=== PATIENT | male | born 1980 | race Hispanic/Latino ===

== ENCOUNTER 2018-02-15 19:07 | Emergency (ER) | payer BC, OTHER ==
[2018-02-15] MEDS ORDERED: CLINDAMYCIN HCL 150 MG CAP ONE (19:24)
== END 2018-02-15 19:44 | disposition home or self-care (01) ==
LOC: EDH 19:07
DX: L03.115 Cellulitis of right lower limb (principal); Z72.0 Tobacco use

== ENCOUNTER 2019-07-08 07:27 | Emergency (ER) | payer BC ==
[2019-07-08] MEDS ORDERED: LIDOCAINE HCL 2% VISCOUS 15 ML UDCUP ONE (08:10)
[2019-07-08] MEDS ORDERED: MAG HYDROX/AL HYDROX/SIMETH ES 30 ML SUSP UDCUP ONE (08:10)
[2019-07-08] MEDS ORDERED: PANTOPRAZOLE 40 MG/VIAL IVP ONE (08:26)
[2019-07-08 08:31] LABS: BASOPHILS % (AUTO) 0.7 % (0.0-5.0); EOSINOPHILS % (AUTO) 1.7 % (0.0-8.0); HEMATOCRIT 38.5 % (42-54); LYMPHOCYTES % (AUTO) 27.7 % (21.0-51.0); MEAN CORPUSCULAR HGB CONC 34.5 g/dL (32.0-36.0); MEAN CORPUSCULAR VOLUME 86.8 fL (79-99); MONOCYTES % (AUTO) 7.9 % (3.0-13.0); PLATELET COUNT (AUTO) 279 K/uL (130-400); RED BLOOD CELL COUNT(AUTO) 4.44 MIL/uL (4.50-6.20); RED CELL DISTRIBUTION WIDTH 13.1 % (11.0-15.5); WHITE BLOOD COUNT (AUTO) 5.3 K/uL (4.8-10.8)
[2019-07-08 08:54] LABS: CREATININE 1.1 mg/dL (0.5-1.5); POTASSIUM 4.1 mmol/L (3.5-5.1)
[2019-07-08 09:01] LABS: ALBUMIN 3.8 g/dL (3.5-5.0); BILIRUBIN,TOTAL 0.2 mg/dL (0.2-1.0); TOTAL PROTEIN, SERUM 6.9 g/dL (6.0-8.3)
== END 2019-07-08 10:28 | disposition home or self-care (01) ==
LOC: EDH 07:27
DX: K29.00 Acute gastritis without bleeding (principal); K21.9 Gastro-esophageal reflux disease without esophagitis; Z98.890 Other specified postprocedural states
CPT/HCPCS: 36415; 80053; 83690; 85025; 86677; 96374; 99285; C9113

== ENCOUNTER 2025-04-15 17:45 | Emergency (ER) | payer BC ==
[~2025-04-15] VITALS: Ht 175.3 cm; Wt 88.5 kg
--- NOTE | 2025-04-15 18:00 | ERN ---
ED Note History of Present Illness Stated Complaint: ABNORMAL LABS Time Seen by MD: 17:55 Time Seen by Midlevel: 17:55 Dictation: Mr. Mayer is a 44 year old male with history of low testosterone levels who presented to the emergency department this evening for evaluation of abnormal lab findings. He states that a few days ago is experiencing some chest tightness and left arm cramping. He states that Tuesday he was moving some heavy objects. He had routine labs drawn on Tuesday by his testosterone replacem ent therapy Dr. and they called him today to tell him that his potassium was 7.2. He denies having any further chest pain/tightness or arm cramping. He denies fever, chills, shortness of breath, cough, chest pain, palpitations, edema, abdominal pain, nausea, vomiting, hematemesis, constipation, diarrhea, melena, hematochezia, dysuria, headache, dizziness, or focal weakness/parest hesia. He denies use of alcohol or recreational drugs. Patient is former smoker. Allergies: Coded Allergies: No Known Allergies (Unverified Allergy, Unknown, 07/08/19) Emergency Care TROUBLE TRACER: None Past Medical History Past Medical History: Other (low testosterone) Surgical History: Other (elbow) PSYCH History: no pertinent psych hx Social History: Smokers (former) RN Note Reviewed/Agreed w/PFSH: Yes Review of System Dictation REVIEW OF SYSTEMS: CONSTITUTIONAL: Patient denies fevers, chills, sweats and weight changes. EYES: Patient denies any visual symptoms. EARS, NOSE, AND THROAT: No difficulties with hearing. No symptoms of rhinitis or sore throat. CARDIOVASCULAR: Patient denies palpitations, orthopnea and paroxysmal nocturnal dyspnea. He states that a few days ago he had some chest course tightness and cramping of his left arm. RESPIRATORY: No dyspnea on exertion, no wheezing or cough. GI: No nausea, vomiting, diarrhea, constipation, abdominal pain, hematochezia or melena. : No urinary hesitancy or dribbling. No nocturia or urinary frequency. No abnormal urethral discharge. MUSCULOSKELETAL: No myalgias or arthralgias. NEUROLOGIC: No chronic headaches, no seizures. Patient denies numbness, tingling or weakness. PSYCHIATRIC: Patient denies problems with mood disturbance. States he has anxiety secondary to abnormal lab values ENDOCRINE: No excessive urination or excessive thirst. DERMATOLOGIC: Patient denies any rashes or skin changes. Initial Vital Sign VS Vital Signs Date Time Temp Pulse Resp B/P (MAP) Pulse Ox O2 Delivery O2 Flow Rate FiO2 04/15/25 17:58 98.1 72 16 152/92 98 Room Air 0 04/15/25 18:06 21 Physical Exam Dictation Vital signs: Reviewed. Afebrile Constitutional: No acute distress. Head/Face: Normocephalic, atraumatic. Eyes: Periorbital areas with no swelling, redness, or edema. Lids and lashes are normal. Conjunctival injection is absent. Sclera anicteric. Pupils equal, round, reactive to light. ENT: Pinnas intact and no signs of trauma or erythema. Ear canals clear and no discharge. TMs no erythema. No nasal discharge or bleeding noted. Oropharynx with no exudate, redness, swelling, masses, exudates, or evidence of obstruction. Uvula midline. Mucous membranes slightly dry Neck: Trachea midline, no masses palpated, and no cervical lymphadenopathy. No swelling. Supple, full range of motion. Chest/Axilla: No tenderness, no crepitus, no paradoxical movement, no retractions. Cardiovascular: Regular rate, regular rhythm, no murmur, no gallops. Symmetric pulses. No peripheral edema. CP 0/10. Twelve lead EKG reflects a sinus rhythm without ST elevation or depression. Respiratory: Respirations even and unlabored. Lung sounds clear; no wheezes, rales or rhonchi. Room air SpO2 99% Gastrointestinal: Inspection is normal. No distention is appreciated. Bowel sounds are normal. No mass or organomegaly . There is no tenderness. No rebound. No rigidity. No voluntary or involuntary guarding. No Chester's sign. Neurological: Normal speech, gross motor function intact, gross sensory function intact. No focal weakness/Paresthesia. Musculoskeletal/Extremities: All extremities have full range of motion, no pain or tenderness on palpation. Symmetric pulses. Integumentary: Intact. Skin is normal color, warm and dry. Cap refill less than 2 seconds. Results (Laboratory/Radiology) Laboratory/Radiology Laboratory Tests Test 04/15/25 18:37 04/15/25 19:22 White Blood Count 10.4 K/uL (4.8-10.8) Red Blood Count 5.43 MIL/uL (4.50-6.20) Hemoglobin 16.1 g/dL (14.0-18.0) Hematocrit 45.4 % (42-54) Mean Corpuscular Volume 83.6 fL (79-99) Mean Corpuscular Hemoglobin 29.7 pg (27.0-33.0) Mean Corpuscular Hemoglobin Concent 35.5 g/dL (32.0-36.0) Red Cell Distribution Width 11.7 % (11.0-15.5) Platelet Count 330 K/uL (130-400) Mean Platelet Volume 9.3 fL (7.5-10.5) Immature Granulocyte % (Auto) 0.3 % (0-1) Neutrophils (%) (Auto) 65.7 % (40.0-77.0) Lymphocytes (%) (Auto) 25.0 % (21.0-51.0) Monocytes (%) (Auto) 7.5 % (3.0-13.0) Eosinophils (%) (Auto) 1.0 % (0.0-8.0) Basophils (%) (Auto) 0.5 % (0.0-5.0) Neutrophils # (Auto) 6.9 K/uL (1.8-7.7) Lymphocytes # (Auto) 2.6 K/uL (1.0-4.8) Monocytes # (Auto) 0.8 K/uL (0.1-1.0) Eosinophils # (Auto) 0.10 K/uL (0.00-0.70) Basophils # (Auto) 0.05 K/uL (0.00-0.20) Absolute Immature Granulocyte (auto 0.03 K/uL (0-1) Nucleated Red Blood Cells 0.0 % (0.0-0.19) Sodium Level 141 mmol/L (136-145) Potassium Level 4.2 mmol/L (3.5-5.1) Chloride Level 102 mmol/L (101-111) Carbon Dioxide Level 29 mmol/L (21-32) Blood Urea Nitrogen 17 mg/dL (7-18) Creatinine 1.2 mg/dL (0.5-1.3) Glomerular Filtration Rate Calc 77 mL/min (>90) Random Glucose 94 mg/dL (70-105) Total Calcium 8.9 mg/dL (8.5-10.1) Total Bilirubin 0.6 mg/dL (0.2-1.0) Direct Bilirubin 0.1 mg/dL (0.0-0.3) Aspartate Amino Transf (AST/SGOT) 31 U/L (10-37) Alanine Aminotransferase (ALT/SGPT) 34 U/L (12-78) Alkaline Phosphatase 86 U/L (50-136) Total Creatine Kinase 282 U/L (21-232) H Troponin I High Sensitivity 8 ng/L (4-75) B-Type Natriuretic Peptide 17 pg/mL (0-100) Total Protein 7.9 g/dL (6.0-8.3) Albumin 4.4 g/dL (3.5-5.0) Urine Color COLORLESS (YELLOW) Urine Appearance CLEAR (CLEAR) Urine pH 7.0 (5.0-8.0) Urine Specific [place] 1.004 (1.001-1.031) Urine Protein NEGATIVE mg/dL (NEGATIVE) Urine Glucose (UA) NEGATIVE mg/dL (NEGATIVE) Urine Ketones NEGATIVE mg/dL (NEGATIVE) Urine Occult Blood NEGATIVE (NEGATIVE) Urine Nitrate NEGATIVE (NEGATIVE) Urine Bilirubin NEGATIVE mg/dL (NEGATIVE) Urine Urobilinogen 0.2 mg/dL (0.2-1.0) Urine Leukocyte Esterase NEGATIVE [place]acey/uL Urine RBC 0-1 /HPF (0-1) Urine WBC None /HPF (0-1) Urine Bacteria None /HPF (None Seen) Labs Reviewed?: Yes EKG Comment: EKG Interpretation: Time Reviewed: 1836 Ventricular rate: 81 bpm [place] Interval: [137] ms QRS duration: [106] ms No ST segment elevation or depression. Clinical impression: sinus rhythm EKG Reviewed and interpreted by Dr. Castillo X-RAY Comment: Chest x-ray unremarkable with clear lung stone as interpreted by me ED Course ED Course Orders Procedure Category Date Status Time Cbc With Differential LAB 04/15/25 Complete 18:22 Basic Metabolic Panel LAB 04/15/25 Complete 18:22 Hepatic Function Panel LAB 04/15/25 Complete 18:22 Troponin I High LAB 04/15/25 Complete Sensitivity 18:22 12 Lead Ekg Tracing- EKG 04/15/25 Complete Technical 18:22 Saline Lock Iv CPOE 04/15/25 Transmitted 18:22 Chest 1vw RAD 04/15/25 Resulted 18:22 Urinalysis Profile LAB 04/15/25 Complete 18:35 B-Type Natriuretic LAB 04/15/25 Complete Peptide 18:35 0.9%Nacl 1000ml (Ns PHA 04/15/25 Complete 1000ml) 19:00 Creatine Kinase, Total LAB 04/15/25 Complete 18:37 Current Medications Medications (Trade) Dose Ordered Sig/Jerilyn Route PRN Reason Start Time Stop Time Status Last Admin Dose Admin Sodium Chloride 1,000 ml @ 0 mls/hr ONCE ONCE IV 04/15/25 19:00 04/15/25 19:01 DC 04/15/25 18:44 Vital Signs Date Time Temp Pulse Resp B/P (MAP) Pulse Ox O2 Delivery O2 Flow Rate FiO2 04/15/25 19:21 84 18 151/94 98 Room Air* 0 21 04/15/25 18:06 98.1 72 16 152/92 98 Room Air* 0 21 04/15/25 17:58 98.1 72 16 152/92 98 Room Air 0 Uneventful ED course. Vital signs stable; afebrile with room air SpO2 98%. Twelve lead EKG reflects a sinus rhythm without ST elevation or depression. No peaked T-waves. Chest x-ray unremarkable with clear lung stone. Laboratory findings as noted below. CK 282. UA clear. While in the ED he received NS 1000 mL IV as bolus. He denies having any chest pain/tightness, shortness of breath, or other concerns. Abnormal lab finding of hyperkalemia at clinic most likely due to hemolyzed sample. HEART Score Response (Comments) Value History: Low suspicion (0) 0 EKG: Normal 0 Age: < 45yrs (0) 0 Risk Factors: 1-2 risk factors (+1) 1 Initial Troponin: Normal limit (0) 0 HEART Score Risk: Low Risk for MACE (1-3) Total 1 Medical Decision Making MDM MDM: Differential diagnosis: Rationale: Tests considered and ordered secondary to shared decision making include: ACS, hyperkalemia, lab air/hemolyzed sample, renal failure Previous outside records reviewed: Old ER visits. Risk of complication and/or morbidity or mortality of patient management: None Medications-Per medication reconciliation Need for hospitalization: Patient does not meet criteria for hospitalization. Need for emergency major/minor surgery: No There are no social concerns with this patient. Prescription drug management: None Prescriptions will include symptomatic care Patient's prior external medical records from other ER visits were reviewed by me as indicated. Prior testing and results from previous visits were reviewed. Prior tests were taken into account with medical decision making and resource utilization, independent historian/historians were used to obtain complete medical history. I independently interpreted the test that were performed, results were reviewed by me and considered findings on radiology if ordered. Medical management and examination interpretation discussions were had by me with other qualified healthcare professionals as indicated for the patient's care. DX & DISP Disposition: Discharge Departure Impression: Primary Impression: Elevated CK Additional Impression: Dehydration Condition: Stable Additional Instructions: Rest. Drink plenty of fluids. Your lab findings/electrolytes were within normal limits. Most likely previous sample was hemolyzed. There was no elevation of your cardiac enzymes. EKG was normal. Follow up with your testosterone replacement clinic. Please return to the emergency department for any chest pain, shortness of breath, or concerns Referrals: ROB BECKHAM MD (PCP) Time of Disposition: 19:38 LORENZO QUINTANA NP Apr 15, 2025 18:00
--- NOTE | 2025-04-15 18:41 | EKG ---
[facility] Test Date: 2025-04-15 Test Time: 18:37:49 Pat Name: ISAIAH DUFF Department: [facility] Room: Gender: Historical Archeologist: [facility] : 1980 Requested By: LORENZO QUINTANA Order Number: [id number] Reading MD: Nichelle Tolbert Measurements Intervals [place] Rate: 81 P: 40 FL: 137 QRS: 57 QRSD: 106 T: 33 QT: 387 QTc: 450 Interpretive Statements Sinus rhythm No previous ECG available for comparison Electronically Signed On 04-17-2025 14:12:46 CDT by Nichelle Tolbert Please click the below link to view image of tracing.
[2025-04-15] MEDS: 0.9%NACL 1000ML 1,000 ML IV ONE (18:44)
[2025-04-15 18:46] LABS: IMMATURE GRANULOCYTE ABSOLUTE 0.03 K/uL (0-1); NUCLEATED RED BLOOD CELLS 0.0 % (0.0-0.19); PLATELET COUNT (AUTO) 330 K/uL (130-400); RED BLOOD CELL COUNT(AUTO) 5.43 MIL/uL (4.50-6.20); RED CELL DISTRIBUTION WIDTH 11.7 % (11.0-15.5); WHITE BLOOD COUNT (AUTO) 10.4 K/uL (4.8-10.8)
[2025-04-15 18:58] LABS: CREATININE 1.2 mg/dL (0.5-1.3); GLOMERULAR FILTR. RATE CALC 77.0 mL/min (>90); GLUCOSE,RANDOM 94.0 mg/dL (70-105); SODIUM SERUM 141.0 mmol/L (136-145); UREA NITROGEN, BLOOD 17.0 mg/dL (7-18)
[2025-04-15 19:07] LABS: ASPARTATE AMINOTRANSFERASE 31.0 U/L (10-37); CREATINE KINASE, TOTAL 282.0 U/L (21-232); TOTAL PROTEIN, SERUM 7.9 g/dL (6.0-8.3)
[2025-04-15 19:34] LABS: ADD UA MICROSCOPIC YES; APPEARANCE,URINE CLEAR (CLEAR); GLUCOSE, URINE (UA) NEGATIVE (NEGATIVE); LEUKOCYTE ESTERASE ,URINE NEGATIVE Leu/uL (NEGATIVE); NITRATE,URINE NEGATIVE (NEGATIVE); OCCULT BLOOD,URINE NEGATIVE (NEGATIVE)
--- NOTE | 2025-04-15 19:36 | HMCIMG ---
EXAM: CR Chest, 2 View. CLINICAL HISTORY: chest pain/tightness COMPARISON: Radiograph dated September 01, 2014 FINDINGS: LUNGS: The lungs show no infiltrate or other acute finding. PLEURAL SPACES: No evidence of pleural effusion or pneumothorax. MEDIASTINUM: The cardiomediastinal silhouette is within normal limits. BONES: No acute osseous abnormality. IMPRESSION: No acute cardiopulmonary pathology is evident. /[place]
[2025-04-15 20:32] VITALS: BP 154/89; PULSE 76; RESP 18; TEMP 98.2; O2SAT 99
== END 2025-04-15 20:43 | disposition home or self-care (01) ==
LOC: EDH 17:45
DX: R74.8 Abnormal levels of other serum enzymes (principal); E86.0 Dehydration; F17.200 Nicotine dependence, unspecified, uncomplicated
CPT/HCPCS: 99284; 96360; 71045; 82550; 80076; 84484; 80048; 83880; 85025; 81001; 36415; 93005; J7030